=== PATIENT | female | born 1970 | race Caucasian/White ===

== ENCOUNTER 2018-02-15 07:51 | Outpatient (CLI) | payer BC | END 2018-02-15 07:52 | disposition home or self-care (01) | LOC: BICMAMMO 07:51 | PROVIDERS: ATTEND Obstetrics & Gynecology | DX: Z12.31 Encounter for screening mammogram for malignant neoplasm of breast (principal) | CPT/HCPCS: 77063; 77067 ==

== ENCOUNTER 2019-06-28 12:18 | Outpatient (CLI) | payer OTHER ==
--- NOTE | 2019-06-28 13:22 | ULT ---
THYROID ULTRASOUND INDICATION: Thyroid goiter TECHNIQUE: Grayscale and color Doppler images were obtained of the thyroid gland. COMPARISON: Thyroid ultrasound dated February 04, 2017 FINDINGS: Right thyroid lobe: The right thyroid lobe measures 7.8 x 2.6 x 2.7 cm cm. There is a 6 mm cyst seen within the mid to lower right thyroid lobe which is stable. There is an 8 mm solid hyperechoic nodule involving the inferior pole the right thyroid lobe which is stable. Thyroid isthmus: The thyroid isthmus measures 0.7 cm cm. Left thyroid lobe: The left thyroid lobe measures 7.4 x 2.7 x 3.1 cm cm. The dictaphone technician notes a 1.3 c m hyperechoic solid nodule within the superior pole of the left thyroid lobe which is likely related to heterogeneity of the thyroid gland and not a discrete nodule. There is a complex cystic no dule seen within the mid left thyroid lobe measuring 1.7 cm that appears to demonstrate some interval growth from the comparison study. The large hyperechoic solid nodule involving the lower jonathan e of the left thyroid gland measures 2 x 1.8 x 1.7 cm and is stable. IMPRESSION: 1. Multinodular goiter. 2. Slight interval enlargement of a TIRADS 2 lesion involving the mid left thyroid lobe. As a conserv ative measure a follow-up ultrasound in one year is recommended to document stability. 3. The other scattered nodules within the thyroid gland are stable.
== END 2019-06-28 12:19 | disposition home or self-care (01) ==
LOC: BICULT 12:18
PROVIDERS: ATTEND Otolaryngology Plastic Surgery within the Head & Neck
DX: E03.9 Hypothyroidism, unspecified (principal); E04.2 Nontoxic multinodular goiter
CPT/HCPCS: 76536

== ENCOUNTER 2020-04-19 14:47 | Outpatient (CLI) | payer BC ==
--- NOTE | 2020-04-19 18:34 | ULT ---
FOCUSED ULTRASOUND OF THE LEFT BREAST 04/19/20 COMPARISON: Comparison made to outside mammography performed 03/27/20. HISTORY: Two masses noted within the upper outer left breast on recent mammography. FINDINGS: Focused ultrasound of the left breast in the upper outer quadrant performed. At the 2 o'clock positio n there are two cysts abutting one another, one measuring up to 2.5 cm and one measuring up to 1.8 cm . The larger cystic lesion demonstrates mild internal septations on the basis of mild complexity. No solid masses or abnormal shadowing. IMPRESSION: BIRADS 2: Benign Finding(s) Routine annual screening mammography (for women over age 40). In the area of concern on prior mammography, there are multiple benign appearing left breast cysts.
== END 2020-04-19 14:48 | disposition home or self-care (01) ==
LOC: BICULT 14:47
PROVIDERS: ATTEND Obstetrics & Gynecology
DX: R92.8 Other abnormal and inconclusive findings on diagnostic imaging of breast (principal); N60.02 Solitary cyst of left breast

== ENCOUNTER 2021-04-12 08:50 | Outpatient (CLI) | payer BC | END 2021-04-12 08:51 | disposition home or self-care (01) | LOC: BICMAMMO 08:50 | PROVIDERS: ATTEND Obstetrics & Gynecology | DX: Z12.31 Encounter for screening mammogram for malignant neoplasm of breast (principal) | CPT/HCPCS: 77063; 77067 ==

== ENCOUNTER 2022-04-23 07:52 | Outpatient (CLI) | payer BC | END 2022-04-23 07:53 | disposition home or self-care (01) | LOC: BICMAMMO 07:52 | PROVIDERS: ATTEND Obstetrics & Gynecology | DX: Z12.31 Encounter for screening mammogram for malignant neoplasm of breast (principal) | CPT/HCPCS: 77063; 77067 ==

== ENCOUNTER 2022-10-10 14:23 | Outpatient (CLI) | payer BC | END 2022-10-10 14:24 | disposition home or self-care (01) | LOC: BICMAMMO 14:23 | PROVIDERS: ATTEND Obstetrics & Gynecology | DX: Z12.31 Encounter for screening mammogram for malignant neoplasm of breast (principal); N60.02 Solitary cyst of left breast; N63.20 Unspecified lump in the left breast, unspecified quadrant; R92.8 Other abnormal and inconclusive findings on diagnostic imaging of breast | CPT/HCPCS: G0279 ==

== ENCOUNTER 2024-01-01 11:26 | Outpatient (CLI) | payer BC | END 2024-01-01 11:27 | disposition home or self-care (01) | LOC: BICMAMMO 11:26 | PROVIDERS: ATTEND Obstetrics & Gynecology | DX: Z12.31 Encounter for screening mammogram for malignant neoplasm of breast (principal) | CPT/HCPCS: 77063; 77067 ==